=== PATIENT | male | born 1955 | race Caucasian/White ===

== ENCOUNTER → 2018-06-16 | Outpatient (CLI) | payer OTHER ==
--- NOTE | 2018-06-16 12:06 | MR ---
EXAMINATION TYPE: MR iac wo/w con DATE OF EXAM: 06/16/2018 COMPARISON: HISTORY: Tinnitus TECHNIQUE: Multiplanar, multisequence images of the brain and brainstem is performed without and with IV contras t, utilizing 7.5 mL intravenous Gadavist . FINDINGS: Diffusion weighted images demonstrate no evidence of a recent infarct or other diffusion ab normality. There is no extra-axial fluid collection. Scattered hyperintensities are present within t he deep white matter on inversion recovery and T2-weighted sequences, approximately 30-40 lesions are present. The ventricular system and cisternal spaces are normal in size and appearance. The brain v olume is age appropriate. Midline structures demonstrate normal morphology. Cerebellopontine angles are normal, there is no sudhir dent mass or abnormal enhancement. Semicircular canals and cochlea appear symmetric. There are normal vascular flow voids. The craniocervical junction appears within normal limits. Post contrast images demonstrate no abnormal enhancement. The dural venous sinuses appear patent. The visualized sinuses are remarkable for mild inflammatory change ethmoid air cells, mucoperiosteal thickening sinus and ma xillary sinus and the globes are intact. IMPRESSION: Nonspecific white matter demyelination. Sinus disease.
== END | disposition home or self-care (01) ==
LOC: RADMRIMAIN 08:25
PROVIDERS: ATTEND Otolaryngology
DX: G37.9 Demyelinating disease of central nervous system, unspecified (principal); H93.19 Tinnitus, unspecified ear; H91.90 Unspecified hearing loss, unspecified ear; H93.3X9 Disorders of unspecified acoustic nerve
CPT/HCPCS: 70553

== ENCOUNTER 2018-07-03 08:20 | Day surgery (SDC) | payer OTHER ==
[2018-06-29 09:51] VITALS: BMI 25.7
[~2018-07-03 08:20] MED LIST: LACTATED RINGERS 1,000 ML IV SCH
[2018-07-03 08:58] VITALS: RESP 16; TEMP 98.8
[2018-07-03] MEDS ORDERED: LIDOCAINE 1% INJ 10MG/ML (20 ML MDV) ONE (09:57)
[2018-07-03] MEDS ORDERED: PROPOFOL 10 MG/ML 20 ML VIAL IV ONE (09:57)
--- NOTE | 2018-07-03 10:06 | P.GSHP ---
History of Present Illness H&P Date: 07/03/18 Chief Complaint: Screening colonoscopy This a 62-year-old male referred from Dr. Johns. Patient presents today for screening colonoscopy. He denies a significant GI complaints. Past Medical History Past Medical History: Cancer, Hypertension Additional Past Medical History / Comment(s): hx of bladder CA, had tx with BCG 2011 History of Any Multi-Drug Resistant Organisms: None Reported Past Surgical History: Appendectomy Additional Past Surgical History / Comment(s): bladder ca sx 2011, scar tissue removed 2012, caden cataract Past Anesthesia/Blood Transfusion Reactions: No Reported Reaction Smoking Status: Former smoker - Past Family History Mother Family Medical History: No Reported History Medications and Allergies Home Medications Medication Instructions Recorded Confirmed Type Lisinopril [Prinivil] 5 mg PO QAM 06/29/18 07/03/18 History Allergies Allergy/AdvReac Type Severity Reaction Status Date / Time No Known Allergies Allergy Verified 07/03/18 08:49 Surgical - Exam Vital Signs Temp Pulse Resp BP Pulse Ox 98.8 F 95 16 140/86 98 07/03/18 08:57 07/03/18 08:57 07/03/18 08:57 07/03/18 08:57 07/03/18 08:57 - General well developed, no distress - Eyes PERRL - ENT normal pinna - Neck no masses - Respiratory normal expansion - Cardiovascular Rhythm: regular - Abdomen Abdomen: soft, non tender Assessment and Plan Assessment: We'll perform screening colonoscopy.
--- NOTE | 2018-07-03 10:24 | P.OP ---
Date of Procedure: 07/03/18 Preoperative Diagnosis: Screening colonoscopy Postoperative Diagnosis: Hemorrhoids Diverticulosis Procedure(s) Performed: Colonoscopy Anesthesia: MAC Surgeon: Santy Keating Pathology: none sent Condition: stable Disposition: PACU Description of Procedure: Patient's placed on the endoscopy table in the lateral position. He received IV sedation. Digital rectal exam was performed which revealed internal hemorrhoids. The flexible colonoscope was then placed patient anus and passed throughout the entire colon. The ileocecal valve incision is. The cecum, ascending and transverse colon appeared normal. In the descending and sigmoid colon there is mild diverticular changes. The scope was then brought back the rectum and this appeared normal. Scope was withdrawn for patient.
[2018-07-03 10:36] VITALS: BP 122/85; PULSE 85
== END 2018-07-03 10:57 | disposition home or self-care (01) ==
LOC: ORWHC2ENDO 08:20
PROVIDERS: ATTEND Surgery
DX: Z12.11 Encounter for screening for malignant neoplasm of colon (principal); K64.8 Other hemorrhoids; K57.30 Diverticulosis of large intestine without perforation or abscess without bleeding; I10 Essential (primary) hypertension; Z85.51 Personal history of malignant neoplasm of bladder; Z87.891 Personal history of nicotine dependence; Z98.42 Cataract extraction status, left eye; Z98.41 Cataract extraction status, right eye
CPT/HCPCS: J2001; J2704; G0121

== ENCOUNTER → 2022-04-30 | Outpatient (CLI) | payer MEDICARE ==
--- NOTE | 2022-05-06 13:50 | HM ---
HOLTER MONITOR REPORT INDICATION: Palpitations. This 24 hour Holter revealed sinus rhythm with an average heart rate of 76 beats per minute. There were no episodes of atrial fibrillation or flutter. Occasional PACs are noted. There were no episodes of sustained ventricular or supraventricular tachyarrhythmias. There were no episodes of more than 2 second pauses. CONCLUSIONS: This 24 hour Holter reveals sinus rhythm with rare PVCs and PACs. MMODL / IJN: [id number] /
== END | disposition home or self-care (01) ==
LOC: RADECHMAIN 07:45
PROVIDERS: ATTEND Family Medicine
DX: R00.2 Palpitations (principal)
CPT/HCPCS: 93225; 93226

== ENCOUNTER → 2022-06-01 | Outpatient (CLI) | payer MEDICARE ==
[2022-06-01 18:40] LABS: T4, Free (Free Thyroxine) 1.23 ng/dL (0.800-1.800)
== END | disposition home or self-care (01) ==
LOC: LABWHC1 12:25
PROVIDERS: ATTEND Internal Medicine Interventional Cardiology
DX: I49.9 Cardiac arrhythmia, unspecified (principal)
CPT/HCPCS: 36415; 84439; 84443

== ENCOUNTER → 2022-07-28 | Outpatient (CLI) | payer MEDICARE ==
[2022-07-28 23:31] LABS: HCT 43.9 % (39.6-50.0); HGB 14.1 g/dL (13.0-17.0); MCH 29.4 pg (27.0-32.0); MCHC 32.1 g/dL (32.0-37.0); MCV 91.5 fL (80.0-97.0); Mean Platelet Volume 11.2 fL (9.5-12.2); NRBC Per 100 WBC 0 /100 WBCS (0.0-0.0); Platelet Count 275 X 10*3/uL (140-440); RDW 13.2 % (11.5-14.5); WBC 7.96 X 10*3/uL (4.50-10.00)
[2022-07-28 23:55] LABS: African American GFR (CKD) 92.1 (60.0-200.0); Anion Gap 10.9 mmol/L (10.00-18.00); Blood Urea Nitrogen 15.8 mg/dL (9.0-27.0); Carbon Dioxide 26.9 mmol/L (20.0-27.5); Non-African American GFR(CKD) 79.4 (60.0-200.0); Potassium 3.8 mmol/L (3.5-5.5)
== END | disposition home or self-care (01) ==
LOC: LABPAT 14:51
PROVIDERS: ATTEND Internal Medicine Interventional Cardiology
DX: Z01.812 Encounter for preprocedural laboratory examination (principal); I48.0 Paroxysmal atrial fibrillation
CPT/HCPCS: 80051; 82565; 84520; 85027

== ENCOUNTER → 2022-08-13 | Day surgery (SDC) | payer MEDICARE ==
[~2022-08-13] MED LIST changes: -LACTATED RINGERS 1,000 ML IV SCH; +MIDAZOLAM 2 MG/2 ML VIAL IVP ONE; +SODIUM CHLORIDE 0.9% 500 ML 500 ML IV ONE; +fentaNYL (PF) 50 MCG/ML 2 ML AMP ONE
[2022-08-13 06:55] VITALS: TEMP 97.9
[2022-08-13] MEDS: BENZOCAINE SPRAY 1 CAN MUCOUS MEM ONE ×2 (07:07→07:28)
[2022-08-13 09:00] VITALS: RESP 16
[2022-08-13 09:02] VITALS: BP 126/77; PULSE 63
--- NOTE | 2022-08-13 09:59 | P.PCN ---
Date of Procedure: 08/13/22 Operative Findings: TRANSESOPHAGEAL ECHOCARDIOGRAM 4TH GRADE MATH TEACHER: NADINE GARCIA MD, RPVI INDICATION: Rule out PFO/ASD SEDATION: Conscious sedation COMPLICATION: None LEVEL OF SEDATION Moderate to sedation was of 12 minutes PROCEDURE DESCRIPTION: After obtaining an informed consent, the patient was brought to transesophageal echocardiogram room. Pulse oximetry and heart monitors were attached to the patient. The patient throat was sprayed using lidocaine. The patient was turned into left lateral position. After that a bite guard was placed. After an appropriate conscious sedation was initiated, the transesophageal echocardiogram was advanced through a bite guard into the mid esophagus. A 2-D echocardiogram images, color Doppler images, continuous wave images, pulse-wave images, of various cardiac structure were performed. After that the transesophageal echocardiogram probe was advanced into the stomach and fixed to obtain transgastric view was. The probe was brought into the mid esophagus. Inter-atrial septum was interrogated using 2D images, color Doppler images, and then contrast study. After that transesophageal echocardiogram was withdrawn out and upon withdrawing the descending thoracic aorta all the way up to the arch was evaluated. FINDING: The left ventricular dimension and systolic function appeared to be within normal limits. The right ventricle appears to be mildly dilated. Both ventricles systolic function appeared to be within normal limits. Both atrial are mildly dilated. The left atrial appendage appeared to be free from any thrombus. 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 The aortic valve is trileaflet valve without stenosis with mild insufficiency. The aortic root appeared to be dilated. The mitral valve appeared to be mildly thickened with evidence of mild mitral valve prolapse and mild mitral regurgitation. There is moderate tricuspid regurgitation seen. No evidence of pericardial effusion identified CONCLUSION: 1. 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 Intact left atrial appendage without any thrombus 3. Normal left ventricular dimension and systolic function 4. Mildly dilated right ventricle with normal function 5. Trileaflet aortic valve without stenosis with mild regurgitation 6. Mildly dilated aortic root 7. Mild mitral valve prolapse was mild MR 8. Moderate tricuspid regurgitation
== END ==
LOC: CATHCVL 06:14
PROVIDERS: ATTEND Internal Medicine Interventional Cardiology
DX: I08.1 Rheumatic disorders of both mitral and tricuspid valves (principal); I25.3 Aneurysm of heart; I77.819 Aortic ectasia, unspecified site
CPT/HCPCS: 93312; 93320; 93325; J2250

== ENCOUNTER → 2025-02-21 | Outpatient (CLI) | payer MEDICARE ==
--- NOTE | 2025-03-04 05:26 | HM ---
HOLTER MONITOR REPORT CLINICAL INFORMATION: Baseline rhythm is a sinus mechanism. The average rate 65 beats per minute, minimum 47, maximum 179 beats per minute. Ventricular ectopic activity was present in the form of rare single PVCs. Supraventricular ectopic activity was present in the form of rare single PACs with burst of atrial tachycardia, the longest being 54 complexes occurred at 9:18 a.m. No symptoms were reported. CONCLUSION: 1. Sinus mechanism, baseline rhythm. 2. Rare ventricular ectopic activity with single PVCs. 3. Rare supraventricular ectopic activity with single PACs as well as bursts of supraventricular tachycardia, the longest being 54 complexes, asymptomatic. MMODL / IJN: [id number] /
== END | disposition home or self-care (01) ==
LOC: RADECHMAIN 13:26
PROVIDERS: ATTEND Family Medicine
DX: I48.91 Unspecified atrial fibrillation (principal); I49.3 Ventricular premature depolarization; I47.19 Other supraventricular tachycardia
CPT/HCPCS: 93225